=== PATIENT | female | born 1975 | race Caucasian/White ===

== ENCOUNTER 2017-04-19 09:21 | Day surgery (SDC) | payer MEDICAID ==
[~2017-04-19 09:21] MED LIST: Lactated Ringers 1,000 ML IV SCH
[2017-04-19] MEDS ORDERED: Propofol 200 MG/20 ML SDV ONE ×2 (11:09→12:04)
[2017-04-19] MEDS ORDERED: fentaNYL 100 MCG/2 ML SDV ONE (11:09)
[2017-04-19 14:08] VITALS: BP 153/90
--- NOTE | 2017-04-19 19:03 | OR ---
PREOPERATIVE DIAGNOSES: 1. Constipation. 2. History of polyps. POSTOPERATIVE DIAGNOSES: 1. Sigmoid polyp. 2. Tortuous colon. PROCEDURE PROPOSED: Total flexible colonoscopy. PROCEDURE DONE: Total flexible colonoscopy with polypectomy x1. INDICATION: This is a 41-year-old female who was referred for a colonoscopy. She has a history of having had a polyp removed 10-15 years ago. She has also had significant constipation over the past year, and it is felt that she should be evaluated. TECHNIQUE: The patient was brought to the endoscopy suite, placed in the left lateral decubitus position. She was sedated per BI SPECIALIST with propofol. A flexible video colonoscope was then passed transanally and under visualization advanced to the cecum. Examination revealed a normal ascending, transverse, and descending colon. In the sigmoid colon, she did have a small polyp removed with 2 bites with a cold biopsy forceps at about 40 cm. The remainder of the rectosigmoid was normal. She did have a rather tortuous colon throughout the exam, there were no straight portions to the colon, it seemed like this could be contributing to her constipation. FINAL IMPRESSION: 1. Tortuous colon, likely contributing to her constipation. 2. Sigmoid polyp at 40 cm, removed. PLAN: I recommended MiraLAX for bed bug exterminator; if she is going to be using something bed bug exterminator for constipation, MiraLAX would be a better product than senna, which she has been using. I will be sending her a letter with the pathology report and make further recommendations as to when her next colonoscopy would be due. SCM: 04/19/2017 12:16:13 MODL: 04/19/2017 18:56:38 /[id number]
--- NOTE | 2017-05-05 07:54 | LETTER ---
05/03/2017 RE: SAMANTHA DOMINGUEZ : 1975 Dear Samantha, The polyp removed from your colon was a precancerous polyp known as a tubular adenoma. It was not very large and there were no worrisome findings within the polyp. Because of this finding, I feel that you should have a 5-year recheck of your colon to make sure if you have formed any new polyps. I am hoping that your constipation is improving with the MiraLax. If you have any further questions, feel free to call. Respectfully,
== END 2017-04-19 13:55 | disposition home or self-care (01) ==
LOC: VM.SDS 09:21
PROVIDERS: ATTEND Surgery
DX: Z12.11 Encounter for screening for malignant neoplasm of colon (principal); D12.6 Benign neoplasm of colon, unspecified; F31.9 Bipolar disorder, unspecified; Z86.010 Personal history of colon polyps; Q43.8 Other specified congenital malformations of intestine; Z91.09 Other allergy status, other than to drugs and biological substances; F17.210 Nicotine dependence, cigarettes, uncomplicated; Z79.899 Other long term (current) drug therapy; Z72.0 Tobacco use; Z98.890 Other specified postprocedural states
CPT/HCPCS: 45380; J2704; J3010; J7120

== ENCOUNTER 2020-08-01 11:29 | Emergency (ER) | payer MEDICAID ==
[2020-08-01 11:57] VITALS: BP 156/86; PULSE 90
--- NOTE | 2020-08-01 19:41 | EDM.PDOC ---
ED HPI GENERAL MEDICAL PROBLEM - General Chief Complaint: ENT Problem Stated Complaint: Ear Pain Time Seen by Provider: 08/01/20 11:45 Source of Information: Reports: Patient History Limitations: Reports: No Limitations - History of Present Illness INITIAL COMMENTS - FREE TEXT/NARRATIVE: Pt. presents to ER with complaints of severe R ear pain. Pt. states that the pain started about 2 weeks ago. denies any trauma to the area. No fever or chills. Pt. states that she has she has noticed the pain potentiates when she smokes/sucks from a glass. Pt. states that the discomfort radiates into the side of her face/tragus. Denies any vision loss or change, nausea, vomiting, headache, confusion. Onset Date: 07/18/20 Location: Reports: Head Right Ear Pain Score (Numeric/FACES): 9 - Related Data Allergies Allergy/AdvReac Type Severity Reaction Status Date / Time wool Allergy Rash Verified 08/01/20 11:44 Home Meds: Home Meds OLANZapine [ZyPREXA] 20 mg PO DAILY 07/11/16 [History] carBAMazepine [Tegretol] 400 mg PO BID 07/11/16 [History] Sennosides/Docusate Sodium [Senokot-S Tablet] 1 each PO DAILY 04/06/17 [History] Past Medical History HEENT History: Reports: None Cardiovascular History: Reports: None Respiratory History: Reports: Other (See Below) Other Respiratory History: Airway reactive disorder Gastrointestinal History: Reports: Chronic Constipation, Colon Polyp 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 (See Below) 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 History: Genital herpes Musculoskeletal History: Reports: None Neurological History: Reports: None Psychiatric History: Reports: Bipolar, PTSD, Other (See Below) Other Psychiatric History: Personality disorder Endocrine/Metabolic History: Reports: None Hematologic History: Reports: None Immunologic History: Reports: None Oncologic (Cancer) History: Reports: None Dermatologic History: Reports: None, Other (See Below) - Past Surgical History Head Surgeries/Procedures: Reports: None HEENT Surgical History: Reports: None Cardiovascular Surgical History: Reports: None Respiratory Surgical History: Reports: None GI Surgical History: Reports: Colonoscopy Female Surgical History: Reports: Tubal Ligation Endocrine Surgical History: Reports: None Musculoskeletal Surgical History: Reports: None Dermatological Surgical History: Reports: None Social & Family History - Tobacco Use Tobacco Use Status *Q: Current Every Day Tobacco User Years of Tobacco use: 38 Packs/Tins Daily: 1 - Caffeine Use Caffeine Use: Reports: Soda - Recreational Drug Use Recreational Drug Use: Yes Drug Use in Last 12 Months: Yes Recreational Drug Type: Reports: Marijuana/Hashish Recreational Drug Use Frequency: Daily ED ROS GENERAL - Review of Systems Review Of Systems: See Below Constitutional: Reports: No Symptoms HEENT: Reports: Ear Pain Respiratory: Reports: No Symptoms Cardiovascular: Reports: No Symptoms Endocrine: Reports: No Symptoms GI/Abdominal: Reports: No Symptoms : Reports: No Symptoms Musculoskeletal: Reports: No Symptoms Skin: Reports: No Symptoms Neurological: Reports: No Symptoms Psychiatric: Reports: No Symptoms Hematologic/Lymphatic: Reports: No Symptoms Immunologic: Reports: No Symptoms ED EXAM, GENERAL - Physical Exam Exam: See Below Exam Limited By: No Limitations General Appearance: Alert, WD/WN, No Apparent Distress Ears: Other (TM is erythematous and bulging.) Ear Exam: Right Ear: TM Dull, TM Red, TM Bulging Nose: Normal Inspection, Normal Mucosa, No Blood Course - Vital Signs Last Recorded V/S: Last Vital Signs Temp 36.9 C 08/01/20 11:50 Pulse 90 08/01/20 11:50 Resp 14 08/01/20 11:50 BP 156/86 H 08/01/20 11:50 Pulse Ox 98 08/01/20 11:50 Departure - Departure Time of Disposition: 19:48 Disposition: Home, Self-Care 01 Clinical Impression: Otitis media - Discharge Information Instructions: Amoxicillin; Clavulanic Acid tablets, Naproxen and naproxen sodium oral immediate-release tablets, Probiotics Referrals: Emmie Camp PA-C [Primary Care Provider] - Forms: ED Department Discharge Additional Instructions: augmentin 875mg 1 twice daily for 10 days Naproxen 500mg 1 twice daily as needed for pain Drink plenty of fluids Follow-up in clinic in 10-14 days, sooner if not gradually improving. Sepsis Event Note (ED) - Evaluation Sepsis Screening Result: No Definite Risk - Focused Exam Vital Signs: Vital Signs Temp Pulse Resp BP Pulse Ox 08/01/20 11:50 36.9 C 90 14 156/86 H 98 - Problem List Review Problem List Initiated/Reviewed/Updated: Yes - Assessment/Plan Plan: augmentin 875mg 1 twice daily for 10 days Naproxen 500mg 1 twice daily as needed for pain Drink plenty of fluids Follow-up in clinic in 10-14 days, sooner if not gradually improving.
== END 2020-08-01 12:23 | disposition home or self-care (01) ==
LOC: VM.ED 11:29 → SUPCPDRO 11:29 → VM.ED 12:23
DX: H66.91 Otitis media, unspecified, right ear (principal); F17.210 Nicotine dependence, cigarettes, uncomplicated; Z98.51 Tubal ligation status; Z91.09 Other allergy status, other than to drugs and biological substances; Z79.899 Other long term (current) drug therapy
CPT/HCPCS: 99282; 99283

== ENCOUNTER 2020-11-25 18:56 | Emergency (ER) | payer MEDICAID ==
[2020-11-25 19:24] VITALS: BP 180/112; PULSE 92
[2020-11-25] MEDS ORDERED: Sodium Chloride 0.9% 10 ML Syringe FLUSH PRN (19:29)
[2020-11-25] MEDS ORDERED: diphenhydrAMINE 50 MG/ML SDV IVPUSH ONE (19:30)
[2020-11-25] MEDS ORDERED: Lactated Ringers 1,000 ML IV ONE ×2 (19:30→20:48)
[2020-11-25] MEDS ORDERED: LORazepam 2 MG/ML SDV IVPUSH ONE ×2 (19:31→20:00)
--- NOTE | 2020-11-25 19:40 | EDM.PDOC ---
ED HPI GENERAL MEDICAL PROBLEM - General Chief Complaint: Behavioral/Psych Stated Complaint: spitting up blood. Time Seen by Provider: 11/25/20 19:05 Source of Information: Reports: Patient History Limitations: Reports: No Limitations, Intoxication - History of Present Illness INITIAL COMMENTS - FREE TEXT/NARRATIVE: Patient comes emergency department today with a myriad of complaints that are rather difficult to keep straight. Patient is homeless. She does have a job she gets an apartment tomorrow. She uses what ever recreational drugs she can use on a regular basis by injection method. She vomits on the daily basis. She vomited multiple times last night. Today when she was at work she was told that her boyfriend was going to [facility] for some reason with recreational drugs. She took somebody's muscle relaxers plus some other pills that she did not know what they were. She was trying to deal with the stress of her boyfriend going to [facility]. She then started to spit over and over and she had streaks of bright red small amounts of blood in her sputum. She does have a history of what sounds to be may be an ulcer or GERD. She has no black or tarry stools. No chest pain no shortness of breath or difficulty breathing. No abdominal pain no nausea no vomiting. No hematuria dysuria or urinary frequency. She does not remember the last time that she had a bowel movement. She eats no food. She drinks Mountain Dew like a hummingbird would drink nectar she relates. When she got home from work today she could not deal with the stress of her boyfriend g oing to [facility] so she used a syringe that she found in this place that she is squatting it and injected it into her left antecubital and missed the vein. She is unsure of what was in the syringe who syringe it was. HPI is difficult to obtain from this patient as she is very clearly altered from some type of recreational substance. Patient relates that she does have quite a bit of psychiatric disorder but she has been taking her medication as prescribed. She denies suicidal or homicidal ideation. Throat Pain Score (Numeric/FACES): 2 - Related Data Allergies Allergy/AdvReac Type Severity Reaction Status Date / Time wool Allergy Rash Verified 08/01/20 11:44 Home Meds: Home Meds OLANZapine [ZyPREXA] 20 mg PO DAILY 07/11/16 [History] carBAMazepine [Tegretol] 400 mg PO BID 07/11/16 [History] Sennosides/Docusate Sodium [Senokot-S Tablet] 1 each PO DAILY 04/06/17 [History] Potassium Chloride 20 meq PO DAILY #5 tablet.er 11/25/20 [Rx] Sulfamethoxazole/Trimethoprim [Bactrim Ds Tablet] 1 each PO BID #20 tablet 11/25/20 [Rx] Past Medical History HEENT History: Reports: None Cardiovascular History: Reports: None Respiratory History: Reports: Other (See Below) Other Respiratory History: Airway reactive disorder Gastrointestinal History: Reports: Chronic Constipation, Colon Polyp 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: Reports: Other (See Below) 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: Genital herpes Musculoskeletal History: Reports: None Neurological History: Reports: None Psychiatric History: Reports: Bipolar, PTSD, Other (See Below) Other Psychiatric History: Personality disorder Endocrine/Metabolic History: Reports: None Hematologic History: Reports: None Immunologic History: Reports: None Oncologic (Cancer) History: Reports: None Dermatologic History: Reports: None, Other (See Below) - Past Surgical History Head Surgeries/Procedures: Reports: None HEENT Surgical History: Reports: None Cardiovascular Surgical History: Reports: None Respiratory Surgical History: Reports: None GI Surgical History: Reports: Colonoscopy Female Surgical History: Reports: Tubal Ligation Endocrine Surgical History: Reports: None Musculoskeletal Surgical History: Reports: None Dermatological Surgical History: Reports: None Social & Family History - Family History Family Medical History: No Pertinent Family History - Tobacco Use Tobacco Use Status *Q: Current Every Day Tobacco User Years of Tobacco use: 20 Packs/Tins Daily: 0.5 - Caffeine Use Caffeine Use: Reports: Soda - Recreational Drug Use Recreational Drug Use: Yes Recreational Drug Type: Reports: Marijuana/Hashish, Methamphetamine Recreational Drug Use Frequency: Daily ED ROS GENERAL - Review of Systems Review Of Systems: Comprehensive ROS is negative, except as noted in HPI. ED EXAM, GENERAL - Physical Exam Exam: See Below Free Text/Narrative:: This patient has a very modulated mood. She goes from laughing and joking inappropriately to crying and sobbing. She is somewhat disheveled. Poor hygiene. Exam Limited By: Altered Mental Status General Appearance: Alert, Anxious Eye Exam: Bilateral Eye: EOMI, PERRL (1 bilat) Ears: Normal External Exam, Normal Canal (Except for the right canal is occluded with cerumen), Normal TMs (Left TM normal unable to identify right TM due to cerumen) Nose: Normal Inspection, Normal Mucosa Throat/Mouth: No: Normal Inspection (Mucosa is very dry.) Head: Atraumatic, Normocephalic Neck: Normal Inspection, Supple, Non-Tender Respiratory/Chest: No Respiratory Distress, Lungs Clear, Normal Breath Sounds, No Accessory Muscle Use, Chest Non-Tender Cardiovascular: Normal Peripheral Pulses, Regular Rate, Rhythm, Tachycardia GI/Abdominal: Normal Bowel Sounds, Soft, Non-Tender (Female) Exam: Deferred Rectal (Female) Exam: Deferred Back Exam: Normal Inspection, Full Range of Motion Extremities: Normal Inspection (On the left AC fossa there is an area of induration and swelling. The areas is quite warm red and hot and swollen. Rest of the extremities are unremarkable. ) Neurological: Alert, Normal Cognition Psychiatric: Anxious, Tearful, Other (As stated above she has flight of ideas tangential thought. No hallucinations or delusions.) Skin Exam: Warm, Dry, Intact, Normal Color Course - Vital Signs Last Recorded V/S: Last Vital Signs Temp 95.8 F L 11/25/20 19:05 Pulse 92 11/25/20 19:05 Resp 16 11/25/20 19:05 BP 180/112 H 11/25/20 19:05 Pulse Ox 100 11/25/20 19:05 - Orders/Labs/Meds Orders: Active Orders 24 hr Category Date Time Status CULTURE BLOOD [BC] Stat Lab 11/25/20 20:31 Results CULTURE BLOOD [BC] Stat Lab 11/25/20 20:39 Results SALICYLATE [REF] Stat Lab 11/25/20 19:45 Received Blood Culture x2 Reflex Set [OM.PC] Stat Oth 11/25/20 20:05 Ordered Peripheral IV Insertion Adult [OM.PC] Stat Oth 11/25/20 19:29 Ordered Labs: Laboratory Tests 11/25/20 11/25/20 11/25/20 Range/Units 19:45 19:45 19:45 WBC 6.7 (4.0-10.0) x10^3/uL RBC 4.54 (4.00-5.50) x10^6/uL Hgb 13.9 (12.0-16.0) g/dL Hct 40.0 (33.0-47.0) % MCV 88.1 (78.0-93.0) fL MCH 30.6 (26.0-32.0) pg MCHC 34.8 (32.0-36.0) g/dL RDW Coeff of Gregor 13.0 (10.0-15.0) % Plt Count 239 (130-400) x10^3/uL Neut % (Auto) 65.7 (50.0-80.0) % Lymph % (Auto) 24.8 L (25.0-50.0) % [place] % (Auto) 8.4 (2.0-11.0) % Eos % (Auto) 0.6 (0.0-4.0) % Baso % (Auto) 0.5 (0.2-1.2) % PT 10.3 (9.9-12.5) SEC INR 0.9 L (2.0-3.5) APTT 27.4 (25.6-32.8) SEC Sodium 140 (136-145) mmol/L Potassium 2.9 L* (3.5-5.1) mmol/L Chloride 101 (98-107) mmol/L Carbon Dioxide 26 (21-32) mmol/L Anion Gap 15.9 H (5-15) mmol/L BUN 11 (7-18) mg/dL Creatinine 0.8 (0.55-1.02) mg/dL Est Cr Clr Drug Dosing 81.38 mL/min Estimated GFR (MDRD) > 60 Glucose 92 (70-99) mg/dL Lactic Acid (0.4-2.0) mmol/L Calcium 9.1 (8.5-10.1) mg/dL Corrected Calcium 9.42 (8.5-10.1) mg/dL Magnesium 1.9 (1.8-2.4) mg/dL Total Bilirubin 0.2 (0.2-1.0) mg/dL AST 20 (15-37) U/L ALT 27 (14-59) U/L Alkaline Phosphatase 114 (46-116) U/L C-Reactive Protein 2.1 H (<=0.9) mg/dL Total Protein 8.2 (6.4-8.2) g/dL Albumin 3.6 (3.4-5.0) g/dL Globulin 4.6 Albumin/Globulin Ratio 0.78 Urine Color (YELLOW) Urine Appearance (CLEAR) Urine pH (5.0-8.0) Ur Specific [place] Urine Protein (NEGATIVE) mg/dL Urine Glucose (UA) (NEGATIVE) mg/dL Urine Ketones (NEGATIVE) mg/dL Urine Occult Blood (NEGATIVE) Urine Nitrite (NEGATIVE) Urine Bilirubin (NEGATIVE) Urine Urobilinogen (0.2) EU/dL Ur Leukocyte Esterase (NEGATIVE) Urine HCG, Qual (NEGATIVE) Urine Opiates Screen (NEGATIVE) Ur Buprenorphine Scrn (NEGATIVE) Ur Oxycodone Screen (NEGATIVE) Ur EDDP (Meth Metab) (NEGATIVE) Urine Methadone Screen (NEGATIVE) Acetaminophen 0 L (10-30) ug/ml Ur Barbiturates Screen (NEGATIVE) Ur Tricyclics Screen (NEGATIVE) Ur Phencyclidine Scrn (NEGATIVE) Ur Amphetamine Screen (NEGATIVE) U Methamphetamines Scrn (NEGATIVE) Urine MDMA Screen (NEGATIVE) U Benzodiazepines Scrn (NEGATIVE) U Cocaine Metab Screen (NEGATIVE) U Marijuana (THC) Screen (NEGATIVE) Ethyl Alcohol 4 H (0-3) mg/dL 11/25/20 11/25/20 11/25/20 Range/Units 19:45 21:30 21:30 WBC (4.0-10.0) x10^3/uL RBC (4.00-5.50) x10^6/uL Hgb (12.0-16.0) g/dL Hct (33.0-47.0) % MCV (78.0-93.0) fL MCH (26.0-32.0) pg MCHC (32.0-36.0) g/dL RDW Coeff of Gregor (10.0-15.0) % Plt Count (130-400) x10^3/uL Neut % (Auto) (50.0-80.0) % Lymph % (Auto) (25.0-50.0) % [place] % (Auto) (2.0-11.0) % Eos % (Auto) (0.0-4.0) % Baso % (Auto) (0.2-1.2) % PT (9.9-12.5) SEC INR (2.0-3.5) APTT (25.6-32.8) SEC Sodium (136-145) mmol/L Potassium (3.5-5.1) mmol/L Chloride (98-107) mmol/L Carbon Dioxide (21-32) mmol/L Anion Gap (5-15) mmol/L BUN (7-18) mg/dL Creatinine (0.55-1.02) mg/dL Est Cr Clr Drug Dosing mL/min Estimated GFR (MDRD) Glucose (70-99) mg/dL Lactic Acid 0.8 (0.4-2.0) mmol/L Calcium (8.5-10.1) mg/dL Corrected Calcium (8.5-10.1) mg/dL Magnesium (1.8-2.4) mg/dL Total Bilirubin (0.2-1.0) mg/dL AST (15-37) U/L ALT (14-59) U/L Alkaline Phosphatase (46-116) U/L C-Reactive Protein (<=0.9) mg/dL Total Protein (6.4-8.2) g/dL Albumin (3.4-5.0) g/dL Globulin Albumin/Globulin Ratio Urine Color Yellow (YELLOW) Urine Appearance Clear (CLEAR) Urine pH 5.5 (5.0-8.0) Ur Specific [place] 1.010 Urine Protein Negative (NEGATIVE) mg/dL Urine Glucose (UA) Negative (NEGATIVE) mg/dL Urine Ketones Negative (NEGATIVE) mg/dL Urine Occult Blood Negative (NEGATIVE) Urine Nitrite Negative (NEGATIVE) Urine Bilirubin Negative (NEGATIVE) Urine Urobilinogen 0.2 (0.2) EU/dL Ur Leukocyte Esterase Negative (NEGATIVE) Urine HCG, Qual (NEGATIVE) Urine Opiates Screen Negative (NEGATIVE) Ur Buprenorphine Scrn Negative (NEGATIVE) Ur Oxycodone Screen Negative (NEGATIVE) Ur EDDP (Meth Metab) Negative (NEGATIVE) Urine Methadone Screen Negative (NEGATIVE) Acetaminophen (10-30) ug/ml Ur Barbiturates Screen Negative (NEGATIVE) Ur Tricyclics Screen Negative (NEGATIVE) Ur Phencyclidine Scrn Negative (NEGATIVE) Ur Amphetamine Screen Positive H (NEGATIVE) U Methamphetamines Scrn Positive H (NEGATIVE) Urine MDMA Screen Negative (NEGATIVE) U Benzodiazepines Scrn Negative (NEGATIVE) U Cocaine Metab Screen Negative (NEGATIVE) U Marijuana (THC) Screen Positive H (NEGATIVE) Ethyl Alcohol (0-3) mg/dL 11/25/20 Range/Units 21:30 WBC (4.0-10.0) x10^3/uL RBC (4.00-5.50) x10^6/uL Hgb (12.0-16.0) g/dL Hct (33.0-47.0) % MCV (78.0-93.0) fL MCH (26.0-32.0) pg MCHC (32.0-36.0) g/dL RDW Coeff of Gregor (10.0-15.0) % Plt Count (130-400) x10^3/uL Neut % (Auto) (50.0-80.0) % Lymph % (Auto) (25.0-50.0) % [place] % (Auto) (2.0-11.0) % Eos % (Auto) (0.0-4.0) % Baso % (Auto) (0.2-1.2) % PT (9.9-12.5) SEC INR (2.0-3.5) APTT (25.6-32.8) SEC Sodium (136-145) mmol/L Potassium (3.5-5.1) mmol/L Chloride (98-107) mmol/L Carbon Dioxide (21-32) mmol/L Anion Gap (5-15) mmol/L BUN (7-18) mg/dL Creatinine (0.55-1.02) mg/dL Est Cr Clr Drug Dosing mL/min Estimated GFR (MDRD) Glucose (70-99) mg/dL Lactic Acid (0.4-2.0) mmol/L Calcium (8.5-10.1) mg/dL Corrected Calcium (8.5-10.1) mg/dL Magnesium (1.8-2.4) mg/dL Total Bilirubin (0.2-1.0) mg/dL AST (15-37) U/L ALT (14-59) U/L Alkaline Phosphatase (46-116) U/L C-Reactive Protein (<=0.9) mg/dL Total Protein (6.4-8.2) g/dL Albumin (3.4-5.0) g/dL Globulin Albumin/Globulin Ratio Urine Color (YELLOW) Urine Appearance (CLEAR) Urine pH (5.0-8.0) Ur Specific [place] Urine Protein (NEGATIVE) mg/dL Urine Glucose (UA) (NEGATIVE) mg/dL Urine Ketones (NEGATIVE) mg/dL Urine Occult Blood (NEGATIVE) Urine Nitrite (NEGATIVE) Urine Bilirubin (NEGATIVE) Urine Urobilinogen (0.2) EU/dL Ur Leukocyte Esterase (NEGATIVE) Urine HCG, Qual Negative (NEGATIVE) Urine Opiates Screen (NEGATIVE) Ur Buprenorphine Scrn (NEGATIVE) Ur Oxycodone Screen (NEGATIVE) Ur EDDP (Meth Metab) (NEGATIVE) Urine Methadone Screen (NEGATIVE) Acetaminophen (10-30) ug/ml Ur Barbiturates Screen (NEGATIVE) Ur Tricyclics Screen (NEGATIVE) Ur Phencyclidine Scrn (NEGATIVE) Ur Amphetamine Screen (NEGATIVE) U Methamphetamines Scrn (NEGATIVE) Urine MDMA Screen (NEGATIVE) U Benzodiazepines Scrn (NEGATIVE) U Cocaine Metab Screen (NEGATIVE) U Marijuana (THC) Screen (NEGATIVE) Ethyl Alcohol (0-3) mg/dL Meds: Medications Discontinued Medications Generic Name Dose Route Start Last Admin Trade Name Freq PRN Reason Stop Dose Admin Diphenhydramine HCl 25 mg 11/25/20 19:30 11/25/20 19:50 Diphenhydramine 50 Mg/Ml Sdv IVPUSH 11/25/20 19:31 25 mg ONETIME ONE Administration Lactated Ringer's 1,000 mls @ 999 mls/hr 11/25/20 19:30 11/25/20 19:50 Ringers, Lactated IV 11/25/20 20:30 999 mls/hr ONETIME ONE Administration Lactated Ringer's 1,000 mls @ 999 mls/hr 11/25/20 20:48 11/25/20 20:55 Ringers, Lactated IV 11/25/20 21:48 999 mls/hr ONETIME ONE Administration Vancomycin HCl 1.5 gm/ Premix 300 mls @ 200 mls/hr 11/25/20 20:50 11/25/20 20:58 IV 11/25/20 22:19 200 mls/hr ONETIME ONE Administration Lorazepam 1 mg 11/25/20 19:31 11/25/20 19:50 Lorazepam 2 Mg/Ml Sdv IVPUSH 11/25/20 19:32 1 mg STAT ONE Administration Lorazepam 1 mg 11/25/20 20:00 11/25/20 20:52 Lorazepam 2 Mg/Ml Sdv IVPUSH 11/25/20 20:01 1 mg STAT ONE Administration Potassium Chloride 40 meq 11/26/20 08:00 Potassium Chloride 10% 20 Meq/15 Ml Soln 15 Ml Ud Cup PO TID LUISA Potassium Chloride 40 meq 11/25/20 20:48 11/25/20 20:56 Potassium Chloride 10% 20 Meq/15 Ml Soln 15 Ml Ud Cup PO 11/25/20 20:49 40 meq NOW STA Administration Potassium Chloride 40 meq 11/25/20 21:55 11/25/20 23:15 Potassium Chloride 10 Meq Tab.Er PO 11/25/20 21:56 40 meq NOW STA Administration Sodium Chloride 10 ml 11/25/20 19:29 Sodium Chloride 0.9% 10 Ml Syringe FLUSH ASDIRECTED PRN Keep Vein Open - Re-Assessments/Exams Free Text/Narrative Re-Assessment/Exam: Patient is quite interesting to observe in the emergency department. She waxes and wanes from laughing hysterically to talking to herself to singing songs to c catalinaing. I am unsure of this is from her underlying psychiatric disorder or if it is polysubstance induced and most likely polysubstance induced as she is admitted to using some type of narcotic recreational drug and a syringe that she randomly found at a friend's house. IV was established labs were drawn. Lorazepam and ativan for aggitation which did improve her symptoms. blood cultures pending with the concerns of an injection site cellulitis to the left arm. Although she had initially stated that she had injected just prior to arrival in the emergency department later during her stay she states that this was from a couple of days ago. Again her consistency of her story is that it is inconsistent. Laboratory evaluation with a CBC WBC 6.7 hemoglobin 13.9 platelet 239. Normal coag studies. CMP with a critically low potassium at 2.9 which was replaced with 40 mEq of oral liquid potassium. Normal BUN and creatinine. Lactic acid is normal at 0.8. Magnesium normal at 1.9 liver enzymes normal. Alkaline phosphatase 2.1. Urine drug screen positive for amphetamines methamphetamines, marijuana. Acetaminophen negative. Alcohol 4. She again began to be more active and singing and restless ativan with resolution. Vanco 1.5gram IVPB for the concerns of the cellulitis and with concerns for MRSa with her custodial usage. Patient did then rest over the next couple of hours. After she woke back up she was much more alert and appropriate. Her demeanor was more appropriate. There was no modulation's hallucinations delusions confusions tangential thoughts or flight of ideas. She is alert appropriate and much more clear headed at this time. I would like to send the patient to [facility] because she is homeless and really does not have anywhere to stay as well as her polysubstance chronic usage. Although she is not suicidal she is not homicidal. She has no risk to herself and she refuses to go to the [facility]. She was able to get a hold of a friend who lives here in town who did come to the emergency department and will take responsibility for her tonight she is alert appropriate at this time in no acute distress. Prescription for Bactrim was sent for the cellulitis of her left antecubital fossa. As well as potassium for her hypokalemia. She does not want any assistance with her polysubstance abuse at this time. She was discharged home with her friend. Discharge directions as below are explained to the patient and her friend they were comfortable with this plan and her questions were answered. Departure - Departure Time of Disposition: 22:00 Disposition: Home, Self-Care 01 Clinical Impression: Cellulitis of antecubital fossa, Methamphetamine abuse, Hypokalemia - Discharge Information *PRESCRIPTION DRUG MONITORING PROGRAM REVIEWED*: Not Applicable *COPY OF PRESCRIPTION DRUG MONITORING REPORT IN PATIENT GENE: Not Applicable Prescriptions: Sulfamethoxazole/Trimethoprim [Bactrim Ds Tablet] 1 each PO BID #20 tablet Potassium Chloride 20 meq PO DAILY #5 tablet.er Referrals: Emmie Camp PA-C [Primary Care Provider] - Forms: ED Department Discharge Additional Instructions: See [facility] for your daily methamphetamine abuse. Bactrim 1 tablet twice daily for the next 10 days. Rx sent to [facility] pharmacy. Do not use syringes that you don't know whats in them this could kill you. Also the risk of infectious diseases like HIV or Hepatitis. Potassium tablets 1 daily for the next 5 days. RX to [facility]. Stop using methamphetamine this can kill you. Make sure and drink water instead of a case of pop a day. Return to the ED if new or worsening symptoms. Follow up with PCP In the next 5 days for recheck of the infection in your elbow. Also the recheck of your potassium. Sepsis Event Note (ED) - Evaluation Sepsis Screening Result: No Definite Risk - My Orders Last 24 Hours: My Active Orders 11/25/20 19:29 Peripheral IV Insertion Adult [OM.PC] Stat 11/25/20 19:45 SALICYLATE [REF] Stat 11/25/20 20:05 Blood Culture x2 Reflex Set [OM.PC] Stat 11/25/20 20:31 CULTURE BLOOD [BC] Stat 11/25/20 20:39 CULTURE BLOOD [BC] Stat - Assessment/Plan Last 24 Hours: My Active Orders 11/25/20 19:29 Peripheral IV Insertion Adult [OM.PC] Stat 11/25/20 19:45 SALICYLATE [REF] Stat 11/25/20 20:05 Blood Culture x2 Reflex Set [OM.PC] Stat 11/25/20 20:31 CULTURE BLOOD [BC] Stat 11/25/20 20:39 CULTURE BLOOD [BC] Stat
[2020-11-25 20:11] LABS: PTT,PARTIAL THROMBOPLSTIN TIME 27.4 SEC (25.6-32.8)
[2020-11-25 20:14] LABS: CHLORIDE,CL 101 mmol/L (98-107); SODIUM,NA 140 mmol/L (136-145)
[2020-11-25 20:17] LABS: ACETAMINOPHEN 0 ug/ml (10-30); ANION GAP 15.9 mmol/L (5-15)
[2020-11-25] MEDS ORDERED: Potassium Chloride 10% 20 MEQ/15 ML Soln 15 ML UD Cup PO STA (20:48)
[2020-11-25] MEDS ORDERED: VANCOmycin 1.5 GM/300 ML 1.5 GM in Premix Bag 1 BAG IV ONE (20:50)
[2020-11-25] MEDS ORDERED: Potassium Chloride 10 MEQ Tab.ER PO STA (21:55)
[2020-11-26 07:34] LABS: BARBITURATE SCREEN,URINE NEGATIVE (NEGATIVE); BENZODIAZEPINES SCREEN,URINE NEGATIVE (NEGATIVE); EDDP,URINE SCREEN NEGATIVE (NEGATIVE); METHAMPHETAMINE SCREEN, URINE POSITIVE (NEGATIVE); TCA SCREEN,URINE NEGATIVE (NEGATIVE); THC SCREEN,URINE 50 NG/ML POSITIVE (NEGATIVE)
[2020-11-26] MEDS ORDERED: Potassium Chloride 10% 20 MEQ/15 ML Soln 15 ML UD Cup PO SCH (08:00)
== END 2020-11-26 00:30 | disposition home or self-care (01) ==
LOC: VM.ED 18:56
DX: L03.114 Cellulitis of left upper limb (principal); F15.10 Other stimulant abuse, uncomplicated; E87.6 Hypokalemia; Z91.048 Other nonmedicinal substance allergy status; Z79.899 Other long term (current) drug therapy; Z72.0 Tobacco use; Z59.0 Homelessness
CPT/HCPCS: 36415; 80053; 80143; 80179; 80305-QW; 80307; 81003; 81025; 83605; 83735; 85025; 85610; 85730; 86140; 87040; 96365; 96366; 96375; 96376; 99284; 99284-25; A9270-GY; J1200; J2060; J3370; J7120

== ENCOUNTER 2021-01-14 15:53 | Emergency (ER) | payer MEDICAID ==
[2021-01-14] MEDS ORDERED: Lactated Ringers 1,000 ML IV ONE ×2 (15:54→16:48)
[2021-01-14] MEDS ORDERED: diphenhydrAMINE 50 MG/ML SDV IVPUSH ONE (15:54)
[2021-01-14] MEDS ORDERED: Sodium Chloride 0.9% 10 ML Syringe FLUSH PRN (15:55)
[2021-01-14] MEDS ORDERED: Haloperidol Lactate 5 MG/ML SDV IV ONE ×2 (15:55→16:13)
[2021-01-14 16:42] LABS: CHLORIDE,CL 109 mmol/L (98-107); SODIUM,NA 148 mmol/L (136-145)
[2021-01-14 16:46] LABS: ANION GAP 20.2 mmol/L (5-15)
--- NOTE | 2021-01-14 16:50 | EDM.PDOCBH ---
ED HPI GENERAL MEDICAL PROBLEM - General Stated Complaint: agitated Time Seen by Provider: 01/14/21 15:53 Source of Information: Reports: Patient, Police History Limitations: Reports: No Limitations - History of Present Illness INITIAL COMMENTS - FREE TEXT/NARRATIVE: Patient is brought to the emergency department today by the local Police Department from the [facility] for concerns of acute agitation mental illness and chemical dependency. This patient was out in the public today and was acting quite strange and anxious and rambling some good [employer] bystanders were concerned for the patient's situation and they brought the patient to the human service Center here in [place]. While she was at the [facility] they were quite concerned for her agitation her demeanor anxiousness her unkept presentation and her known history of mental illness as well as chemical dependency and miss usage. The police were called as the patient had locked herself into the bathroom at the [facility]. The police brought the patient to the emergency department for medical clearance for possible placement at the [facility]. Upon arrival the patient is quite animated agitated rambling anxious modulated. She relates that she is out in the public trying to fix up [place] and she did nothing wrong and she does not know why she is here. She denies any suicidal or homicidal ideation. No hallucinations or delusions. She denies any alcohol or recreational drug use currently although has in the past. She does not know why she is in the emergency dep artment she has no physical complaints. She is a homeless [facility]. - Related Data Allergies Allergy/AdvReac Type Severity Reaction Status Date / Time wool Allergy Rash Verified 01/14/21 16:54 Home Meds: Home Meds OLANZapine [ZyPREXA] 20 mg PO DAILY 07/11/16 [History] carBAMazepine [Tegretol] 400 mg PO BID 07/11/16 [History] Sennosides/Docusate Sodium [Senokot-S Tablet] 1 each PO DAILY 04/06/17 [History] Potassium Chloride 20 meq PO DAILY #5 tablet.er 11/25/20 [Rx] Sulfamethoxazole/Trimethoprim [Bactrim Ds Tablet] 1 each PO BID #20 tablet 11/25/20 [Rx] Past Medical History HEENT History: Reports: None Cardiovascular History: Reports: None Respiratory History: Reports: Other (See Below) Other Respiratory History: Airway reactive disorder Gastrointestinal History: Reports: Chronic Constipation, Colon Polyp PICKER AND PACKER History: Reports: Other (See Below) Other PICKER AND PACKER History: Genital herpes Musculoskeletal History: Reports: None Neurological History: Reports: None Psychiatric History: Reports: Bipolar, PTSD, Other (See Below) Other Psychiatric History: Personality disorder Endocrine/Metabolic History: Reports: None Hematologic History: Reports: None Immunologic History: Reports: None Oncologic (Cancer) History: Reports: None Dermatologic History: Reports: None, Other (See Below) - Past Surgical History Head Surgeries/Procedures: Reports: None HEENT Surgical History: Reports: None Cardiovascular Surgical History: Reports: None Respiratory Surgical History: Reports: None GI Surgical History: Reports: Colonoscopy Female Surgical History: Reports: Tubal Ligation Endocrine Surgical History: Reports: None Musculoskeletal Surgical History: Reports: None Dermatological Surgical History: Reports: None Social & Family History - Family History Family Medical History: No Pertinent Family History - Caffeine Use Caffeine Use: Reports: Soda ED ROS GENERAL - Review of Systems Review Of Systems: Comprehensive ROS is negative, except as noted in HPI. ED EXAM, BEHAVIORAL HEALTH - Physical Exam Exam: See Below Text/Narrative:: This patient is very anxious animated and agitated. Her demeanor is quite modulated. She goes from laughing and joking to crying and sobbing. She has tangential thoughts. Her hygiene she is quite unkept. She is rambling with pressured speech. No hallucinations or delusions. No delusions of grandeur. She does have some paranoia that everyone is out to get her. Exam Limited By: No Limitations General Appearance: Alert, Anxious Eye Exam: Bilateral Eye: EOMI, Other (pupils 2mm bilaterally) Ears: Normal External Exam Nose: Normal Inspection Throat/Mouth: Normal Inspection (oral mucosa is quite dry. ), Normal Lips (dry and cracked. ), No Airway Compromise Head: Atraumatic, Normocephalic Neck: Normal Inspection, Supple, Non-Tender Respiratory/Chest: No Respiratory Distress, Lungs Clear, Normal Breath Sounds, No Accessory Muscle Use, Chest Non-Tender Cardiovascular: Normal Peripheral Pulses, Regular Rate, Rhythm, Tachycardia GI/Abdominal: Normal Bowel Sounds, Soft, Non-Tender (Female) Exam: Deferred Rectal (Female) Exam: Deferred Back Exam: Normal Inspection Extremities: Normal Inspection, Normal Range of Motion, No Pedal Edema, Normal Capillary Refill Neurological: Alert, No Motor/Sensory Deficits, Oriented x 3. No: Normal Mood/Affect (see above) Psychiatric: Alert, Oriented, Restless, Agitated, Flight of Ideas, Phobic, Tangential Thoughts, Pressured Speech, Paranoid Thoughts. No: Inattentive, Non- Communicative, Poor Eye Contact (she has constant direct purposefull eye contact at time. ), Homicidal Thoughts, Congregational Delusions, Suicidal Plan, Suicidal Thoughts, Auditory Hallucinations, Visual Hallucinations, Grandiose Thoughts, Threatening Behavior Skin Exam: Warm, Intact, Diaphoretic COURSE, BEHAVIORAL HEALTH COMP - Course Vital Signs: Last Vital Signs Temp 98.9 F 01/14/21 17:11 Pulse 111 H 01/14/21 17:11 Resp 22 H 01/14/21 17:11 BP 152/64 H 01/14/21 17:11 Pulse Ox 99 01/14/21 17:11 Orders, Labs, Meds: Active Orders 24 hr Category Date Time Status SALICYLATE [REF] Stat Lab 01/14/21 16:10 Received Peripheral IV Insertion Adult [OM.PC] Stat Oth 01/14/21 15:54 Ordered Laboratory Tests 01/14/21 01/14/21 01/14/21 Range/Units 16:10 16:10 16:10 WBC 9.6 (4.0-10.0) x10^3/uL RBC 4.79 (4.00-5.50) x10^6/uL Hgb 14.6 (12.0-16.0) g/dL Hct 41.9 (33.0-47.0) % MCV 87.5 (78.0-93.0) fL MCH 30.5 (26.0-32.0) pg MCHC 34.8 (32.0-36.0) g/dL RDW Coeff of Gregor 12.9 (10.0-15.0) % Plt Count 253 (130-400) x10^3/uL Neut % (Auto) 73.4 (50.0-80.0) % Lymph % (Auto) 15.0 L (25.0-50.0) % Andrews % (Auto) 11.2 H (2.0-11.0) % Eos % (Auto) 0.1 (0.0-4.0) % Baso % (Auto) 0.3 (0.2-1.2) % Sodium 148 H (136-145) mmol/L Potassium 3.2 L (3.5-5.1) mmol/L Chloride 109 H (98-107) mmol/L Carbon Dioxide 22 (21-32) mmol/L Anion Gap 20.2 H (5-15) mmol/L BUN 15 (7-18) mg/dL Creatinine 1.6 H (0.55-1.02) mg/dL Est Cr Clr Drug Dosing TNP Estimated GFR (MDRD) 35 Glucose 120 H (70-99) mg/dL Calcium 9.7 (8.5-10.1) mg/dL Corrected Calcium 9.5 (8.5-10.1) mg/dL Magnesium 2.1 (1.8-2.4) mg/dL Total Bilirubin 0.7 (0.2-1.0) mg/dL AST 29 (15-37) U/L ALT 72 H (14-59) U/L Alkaline Phosphatase 88 (46-116) U/L Total Protein 8.7 H (6.4-8.2) g/dL Albumin 4.3 (3.4-5.0) g/dL Globulin 4.4 Albumin/Globulin Ratio 0.98 TSH, Ultra Sensitive 0.905 (0.358-3.74) uIU/mL Urine Color (YELLOW) Urine Appearance (CLEAR) Urine pH (5.0-8.0) Ur Specific [place] Urine Protein (NEGATIVE) mg/dL Urine Glucose (UA) (NEGATIVE) mg/dL Urine Ketones (NEGATIVE) mg/dL Urine Occult Blood (NEGATIVE) Urine Nitrite (NEGATIVE) Urine Bilirubin (NEGATIVE) Urine Urobilinogen (0.2) EU/dL Ur Leukocyte Esterase (NEGATIVE) U Hyaline Cast (Auto) Urine RBC (NOT SEEN) /HPF Urine WBC (NOT SEEN) /HPF Ur Squamous Epith Cells (NOT SEEN) /HPF Amorphous Sediment Urine Bacteria (NOT SEEN) /HPF Urine Mucus (NOT SEEN) /LPF Urine HCG, Qual (NEGATIVE) Urine Opiates Screen (NEGATIVE) Ur Buprenorphine Scrn (NEGATIVE) Ur Oxycodone Screen (NEGATIVE) Urine Methadone Screen (NEGATIVE) Acetaminophen 0 L (10-30) ug/ml Ur Barbiturates Screen (NEGATIVE) Ur Phencyclidine Scrn (NEGATIVE) Ur Amphetamine Screen (NEGATIVE) U Methamphetamines Scrn (NEGATIVE) Urine MDMA Screen (NEGATIVE) U Benzodiazepines Scrn (NEGATIVE) U Cocaine Metab Screen (NEGATIVE) U Marijuana (THC) Screen (NEGATIVE) Ethyl Alcohol < 3 (0-3) mg/dL SARS CoV-2 RNA Rapid KIMMY (NEGATIVE) 01/14/21 01/14/21 01/14/21 Range/Units 17:40 18:00 18:00 WBC (4.0-10.0) x10^3/uL RBC (4.00-5.50) x10^6/uL Hgb (12.0-16.0) g/dL Hct (33.0-47.0) % MCV (78.0-93.0) fL MCH (26.0-32.0) pg MCHC (32.0-36.0) g/dL RDW Coeff of Gregor (10.0-15.0) % Plt Count (130-400) x10^3/uL Neut % (Auto) (50.0-80.0) % Lymph % (Auto) (25.0-50.0) % Andrews % (Auto) (2.0-11.0) % Eos % (Auto) (0.0-4.0) % Baso % (Auto) (0.2-1.2) % Sodium (136-145) mmol/L Potassium (3.5-5.1) mmol/L Chloride (98-107) mmol/L Carbon Dioxide (21-32) mmol/L Anion Gap (5-15) mmol/L BUN (7-18) mg/dL Creatinine (0.55-1.02) mg/dL Est Cr Clr Drug Dosing Estimated GFR (MDRD) Glucose (70-99) mg/dL Calcium (8.5-10.1) mg/dL Corrected Calcium (8.5-10.1) mg/dL Magnesium (1.8-2.4) mg/dL Total Bilirubin (0.2-1.0) mg/dL AST (15-37) U/L ALT (14-59) U/L Alkaline Phosphatase (46-116) U/L Total Protein (6.4-8.2) g/dL Albumin (3.4-5.0) g/dL Globulin Albumin/Globulin Ratio TSH, Ultra Sensitive (0.358-3.74) uIU/mL Urine Color Yellow (YELLOW) Urine Appearance Clear (CLEAR) Urine pH 7.0 (5.0-8.0) Ur Specific [place] 1.025 Urine Protein Negative (NEGATIVE) mg/dL Urine Glucose (UA) Negative (NEGATIVE) mg/dL Urine Ketones Trace H (NEGATIVE) mg/dL Urine Occult Blood Trace-intact H (NEGATIVE) Urine Nitrite Negative (NEGATIVE) Urine Bilirubin Negative (NEGATIVE) Urine Urobilinogen 0.2 (0.2) EU/dL Ur Leukocyte Esterase Negative (NEGATIVE) U Hyaline Cast (Auto) Many Urine RBC 0-5 (NOT SEEN) /HPF Urine WBC 0-5 (NOT SEEN) /HPF Ur Squamous Epith Cells Moderate H (NOT SEEN) /HPF Amorphous Sediment Rare Urine Bacteria Not seen (NOT SEEN) /HPF Urine Mucus Moderate H (NOT SEEN) /LPF Urine HCG, Qual Negative (NEGATIVE) Urine Opiates Screen (NEGATIVE) Ur Buprenorphine Scrn (NEGATIVE) Ur Oxycodone Screen (NEGATIVE) Urine Methadone Screen (NEGATIVE) Acetaminophen (10-30) ug/ml Ur Barbiturates Screen (NEGATIVE) Ur Phencyclidine Scrn (NEGATIVE) Ur Amphetamine Screen (NEGATIVE) U Methamphetamines Scrn (NEGATIVE) Urine MDMA Screen (NEGATIVE) U Benzodiazepines Scrn (NEGATIVE) U Cocaine Metab Screen (NEGATIVE) U Marijuana (THC) Screen (NEGATIVE) Ethyl Alcohol (0-3) mg/dL SARS CoV-2 RNA Rapid KIMMY Negative (NEGATIVE) 01/14/21 Range/Units 18:00 WBC (4.0-10.0) x10^3/uL RBC (4.00-5.50) x10^6/uL Hgb (12.0-16.0) g/dL Hct (33.0-47.0) % MCV (78.0-93.0) fL MCH (26.0-32.0) pg MCHC (32.0-36.0) g/dL RDW Coeff of Gregor (10.0-15.0) % Plt Count (130-400) x10^3/uL Neut % (Auto) (50.0-80.0) % Lymph % (Auto) (25.0-50.0) % Andrews % (Auto) (2.0-11.0) % Eos % (Auto) (0.0-4.0) % Baso % (Auto) (0.2-1.2) % Sodium (136-145) mmol/L Potassium (3.5-5.1) mmol/L Chloride (98-107) mmol/L Carbon Dioxide (21-32) mmol/L Anion Gap (5-15) mmol/L BUN (7-18) mg/dL Creatinine (0.55-1.02) mg/dL Est Cr Clr Drug Dosing Estimated GFR (MDRD) Glucose (70-99) mg/dL Calcium (8.5-10.1) mg/dL Corrected Calcium (8.5-10.1) mg/dL Magnesium (1.8-2.4) mg/dL Total Bilirubin (0.2-1.0) mg/dL AST (15-37) U/L ALT (14-59) U/L Alkaline Phosphatase (46-116) U/L Total Protein (6.4-8.2) g/dL Albumin (3.4-5.0) g/dL Globulin Albumin/Globulin Ratio TSH, Ultra Sensitive (0.358-3.74) uIU/mL Urine Color (YELLOW) Urine Appearance (CLEAR) Urine pH (5.0-8.0) Ur Specific [place] Urine Protein (NEGATIVE) mg/dL Urine Glucose (UA) (NEGATIVE) mg/dL Urine Ketones (NEGATIVE) mg/dL Urine Occult Blood (NEGATIVE) Urine Nitrite (NEGATIVE) Urine Bilirubin (NEGATIVE) Urine Urobilinogen (0.2) EU/dL Ur Leukocyte Esterase (NEGATIVE) U Hyaline Cast (Auto) Urine RBC (NOT SEEN) /HPF Urine WBC (NOT SEEN) /HPF Ur Squamous Epith Cells (NOT SEEN) /HPF Amorphous Sediment Urine Bacteria (NOT SEEN) /HPF Urine Mucus (NOT SEEN) /LPF Urine HCG, Qual (NEGATIVE) Urine Opiates Screen Negative (NEGATIVE) Ur Buprenorphine Scrn Negative (NEGATIVE) Ur Oxycodone Screen Negative (NEGATIVE) Urine Methadone Screen Negative (NEGATIVE) Acetaminophen (10-30) ug/ml Ur Barbiturates Screen Negative (NEGATIVE) Ur Phencyclidine Scrn Negative (NEGATIVE) Ur Amphetamine Screen Positive H (NEGATIVE) U Methamphetamines Scrn Positive H (NEGATIVE) Urine MDMA Screen Negative (NEGATIVE) U Benzodiazepines Scrn Negative (NEGATIVE) U Cocaine Metab Screen Negative (NEGATIVE) U Marijuana (THC) Screen Positive H (NEGATIVE) Ethyl Alcohol (0-3) mg/dL SARS CoV-2 RNA Rapid KIMMY (NEGATIVE) Medications Discontinued Medications Generic Name Dose Route Start Last Admin Trade Name Darlin PRN Reason Stop Dose Admin Diphenhydramine HCl 25 mg 01/14/21 15:54 01/14/21 16:05 Diphenhydramine 50 Mg/Ml Sdv IVPUSH 01/14/21 15:55 25 mg ONETIME ONE Administration Haloperidol Lactate 2.5 mg 01/14/21 15:55 01/14/21 16:08 Haloperidol Lactate 5 Mg/Ml Sdv IV 01/14/21 15:56 2.5 mg ONETIME ONE Administration Haloperidol Lactate 2.5 mg 01/14/21 16:13 01/14/21 16:20 Haloperidol Lactate 5 Mg/Ml Sdv IV 01/14/21 16:14 2.5 mg ONETIME ONE Administration Lactated Ringer's 1,000 mls @ 999 mls/hr 01/14/21 15:54 01/14/21 16:05 Ringers, Lactated IV 01/14/21 16:54 999 mls/hr ONETIME ONE Administration Lactated Ringer's 1,000 mls @ 999 mls/hr 01/14/21 16:48 01/14/21 16:59 Ringers, Lactated IV 01/14/21 17:48 999 mls/hr ONETIME ONE Administration Sodium Chloride 10 ml 01/14/21 15:55 Sodium Chloride 0.9% 10 Ml Syringe FLUSH ASDIRECTED PRN Keep Vein Open Re-Assessment/Re-Exam: IV was established labs were drawn. The patient is quite agitated up and down and all over the place in the room. She is difficult to keep in the room. She is argumentative and yelling at the concert singer at times. Then she is sad and crying. She is in constant motion all over the room. IV was established labs were drawn. 1 L of LR wide open. Benadryl 25 mg IV push. Haldol 2.5 mg IV push for agitation anxiety We did have to repeat the Haldol. Laboratory evaluation with the CBC which is rather unremarkable. CMP with a sodium of 148, potassium 3.2, creatinine 1.6 with a BUN of 15 in the presence of acute kidney injury most likely due to dehydration. Glucose 120 ALT 72 TSH is normal at 0.950 Magnesium 2.1. Patient was given a second liter of fluid and eventually was able to give a urinalysis Urinalysis positive for ketones trace amount of blood no RBCs or WBCs Urine is negative. Acetaminophen level is negative Alcohol is less than 3. Urine drug screen positive for amphetamines methamphetamines and marijuana. After the above therapy the patient was much less agitated. Although when I woke her up from sleeping she still had pressured speech rambling thoughts it was just not as exaggerated and animated as previously. She is still concerned about other people out to get her. She does not know why she is here. Human service [place] had already filled out the paperwork for hold to get her to the [facility] in [place] for concerns of worsening mental illness as well as chemical dependency. I called and spoke with Dr. Tirado at the [facility]. HPI ER COURSE findings and concerns were relayed to him. He accepted the patient in transfer at this time for further care management at the [facility]. The IV was removed and the patient left with the police to the [facility]. Departure - Departure Time of Disposition: 18:32 Disposition: DC/Tfer to [facility] H[facility] Clinical Impression: ROGELIO (acute kidney injury), Dehydration, Psychomotor agitation, Methamphetamine intoxication - Discharge Information *PRESCRIPTION DRUG MONITORING PROGRAM REVIEWED*: Not Applicable *COPY OF PRESCRIPTION DRUG MONITORING REPORT IN PATIENT GENE: Not Applicable Referrals: PCP,None [Primary Care Provider] - Forms: Interfacility Transfer EMTALA Additional Instructions: To [facility] as per [facility] direction. Drink plenty of fluids over the next few days. Discontinue methamphetamine usage. - My Orders Last 24 Hours: My Active Orders 01/14/21 15:54 Peripheral IV Insertion Adult [OM.PC] Stat 01/14/21 16:10 SALICYLATE [REF] Stat - Assessment/Plan Last 24 Hours: My Active Orders 01/14/21 15:54 Peripheral IV Insertion Adult [OM.PC] Stat 01/14/21 16:10 SALICYLATE [REF] Stat
[2021-01-14 17:02] LABS: ACETAMINOPHEN 0 ug/ml (10-30)
[2021-01-14 17:23] VITALS: BP 152/64; PULSE 111
[2021-01-14 18:19] LABS: BARBITURATE SCREEN,URINE NEGATIVE (NEGATIVE); BENZODIAZEPINES SCREEN,URINE NEGATIVE (NEGATIVE); METHAMPHETAMINE SCREEN, URINE POSITIVE (NEGATIVE); THC SCREEN,URINE 50 NG/ML POSITIVE (NEGATIVE)
== END 2021-01-14 20:00 ==
LOC: VM.ED 15:53
DX: N17.9 Acute kidney failure, unspecified (principal); E86.0 Dehydration; R45.1 Restlessness and agitation; F15.129 Other stimulant abuse with intoxication, unspecified; Z91.048 Other nonmedicinal substance allergy status; Z20.822 Contact with and (suspected) exposure to COVID-19; Z79.899 Other long term (current) drug therapy
CPT/HCPCS: 36415; 80053; 80143; 80179; 80305-QW; 80307; 81001; 81025; 83735; 84443; 85025; 96374; 96375; 99284; 99285-25; J1200; J1630; J7120; U0002